=== PATIENT | female | born 1975 | race Caucasian/White ===

== ENCOUNTER → 2017-02-18 | Emergency (ER) | payer OTHER ==
[~2017-02-18] VITALS: Ht 157.5 cm; Wt 59.0 kg
[~2017-02-18] MED LIST: BUSPIRONE HCL10 MG PO; CEPHALEXIN500 MG PO; DESLORATADINE5 MG PO; DILAUDID2 MG PO; HUMIRA40 MG/0.8 SUB-Q; OMEPRAZOLE20 M1 PO; PLAQUENIL200 MG PO; WELLBUTRIN XL150 MG PO; ZOFRAN ODT4 MG PO
== END ==
LOC: ED 04:21
DX: K52.9 Noninfective gastroenteritis and colitis, unspecified (principal); I10 Essential (primary) hypertension; Z90.710 Acquired absence of both cervix and uterus; Z90.89 Acquired absence of other organs; Z88.5 Allergy status to narcotic agent; Z88.8 Allergy status to other drugs, medicaments and biological substances; Z79.899 Other long term (current) drug therapy
CPT/HCPCS: 80053; 81001; 83690; 85025; 96361; 96374; 96375; 99284; J1170; J2405; J7030

== ENCOUNTER 2023-07-27 07:41 | Day surgery (SDC) | payer OTHER ==
[~2023-07-27] VITALS: Ht 162.6 cm; Wt 65.0 kg
[~2023-07-27 07:41] MED LIST changes: +IBLOOD GLUCOSE TEST STRIP 1 EA TEST VI PRN; +LACTATED RINGER'S 1,000 ML IV SCH; +LIDOCAINE HCL 1% 5 ML SDV INJ ONE; +LIDOCAINE HCL 4% 50 ML BTL TOP SCH; +MIDAZOLAM HCL 5 MG/5 ML VIAL IV PRN; +fentaNYL citrate 100 MCG/2 ML VIAL IV PRN
[2023-07-27 07:55] VITALS: BP 135/78
[2023-07-27] MEDS ORDERED: MULTIPLE VITAM1 EAC2 PO (07:59)
[2023-07-27] MEDS ORDERED: PROBIOTIC1 EAC1 PO (08:00)
[2023-07-27] MEDS ORDERED: VITAMIN D310 MC4 PO (08:00)
[2023-07-27] MEDS ORDERED: LEFLUNOMIDE10 MG PO (08:00)
[2023-07-27] MEDS ORDERED: VALTREX500 MG PO (08:01)
[2023-07-27] MEDS ORDERED: fentaNYL citrate 100 MCG/2 ML VIAL ONE ×2 (08:57→09:32)
[2023-07-27] MEDS ORDERED: MIDAZOLAM HCL 5 MG/5 ML VIAL ONE (08:57)
--- NOTE | 2023-07-27 10:20 | NUR ---
07/27/23 1020 Suad Cox 1015- PT CHANGED HER ON POSITION TO SIT UP. 1019- REQUESTING TO HAVE ICE TO CHEW ON. DENIES PAIN OR NAUSEA.
[2023-07-27 10:55] VITALS: BP 121/76
--- NOTE | 2023-07-28 09:47 | OR ---
[facility] [address], [place] [address] Signed DATE OF OPERATION: 07/27/2023 SURGEON: Dax Hawkins MD PREOPERATIVE DIAGNOSES: 1. Iron deficiency anemia. 2. 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 3. Normal colonoscopy 2006. POSTOPERATIVE DIAGNOSES: 1. Anatomy typical of Yaquelin-en-Y gastric bypass. No evidence of ulceration, neoplasm, or abnormality. 2. Normal colon to cecum. PROCEDURES: 1. Esophagogastroduodenoscopy with biopsy. 2. Total colonoscopy to cecum. ANESTHESIA: Intravenous sedation; fentanyl 200 mcg and Versed 10 mg total. INDICATION: This 47-year-old white woman is a patient of ANGELIQUE Valero. She is noted to have iron deficiency anemia. She last underwent colonoscopy in 2006, which was normal. Additionally, she has undergone a gastric sleeve resection for obesity control which had complications requiring conversion to a Yaquelin-en-Y gastric bypass. She does have some colonic symptoms including diarrhea, but no actual rectal bleeding. She has had iron infusion x2 based on her iron deficiency anemia. She is admitted at this time to undergo upper endoscopy to better characterize the possibility of ulceration accounted for anemia as well as colonoscopy for similar purpose. The patient understands upon my discussion with her the anatomy of Yaquelin-en-Y gastric bypass is prone to iron deficiency anemia due to restriction of enteric contents away from the duodenum (it is most important and efficient iron absorption segment of the bowel). Nevertheless upper endoscopy and colonoscopy is undertaken to assess for abnormality that might account for iron deficiency anemia. FINDINGS: Upper endoscopy was normal with anatomy typical of Yaquelin-en-Y gastric bypass. She had an exceedingly small gastric pouch it is noted. She appeared to have a double-lumen Electronically Signed By: DAX HAWKINS MD 07/28/23 0947 PATIENT NAME: ALEXANDRU BEAR OPERATIVE REPORT DATE OF : 73 REPORT #: [id number] PHYSICIAN: DAX HAWKINS MD PCP: [facility] PAC REPORT IS CONFIDENTIAL AND NOT TO BE RELEASED WITHOUT AUTHORIZATION [facility] [address], [place] [address] Signed jejunal Yaquelin limb. There was no evidence of ulceration, neoplasm, H pylori, or other problem and certainly no evidence of a cause of anemia anatomically. On colonoscopy, the prep was good and complete colonoscopy was undertaken of the cecum. There was no evidence of polyps or other abnormality including cancer that would account for anemia. In aggregate, her anemia is likely related to diversion of enteric contents from the duodenum. DESCRIPTION OF PROCEDURE: The patient was brought to the endoscopy suite and placed in the lateral decubitus position, given intravenous sedation to the point of slurred speech and nystagmus after undergoing topical lidocaine hypopharyngeal anesthesia. A bite block was placed. An Olympus video upper endoscope was passed in the hypopharynx. The vocal cords appeared normal. The scope was advanced into the esophagus without problem and passed down to the gastric remnant which was exceedingly small. There was no sign of abnormality of the remnant. The scope was passed through the jejunal gastric anastomosis showing no sign of anastomotic stricture or ulceration. The Yaquelin limb was entirely normal and the scope passed for its extent as far as possible. Actual Yaquelin connection was never visualized, however. The scope was carefully withdrawn showing no sign of ulceration or other problem. Reinspection of the gastric pouch undertaken. There appeared to be a dual lumen configuration of the jejunal limb, likely related to technical issues in conversion from a sleeve resection to a Yaquelin-en-Y gastric bypass. Biopsies were taken of the stomach to assess for H pylori. Scope was withdrawn and biopsy was then taken of the esophagus, though it appeared normal. Further withdrawal of the scope showed no other abnormality. Plans were then made for colonoscopy. Additional sedation was given. Digital rectal examination was performed, which was normal. An Olympus video colonoscope was passed in the rectum and manipulated throughout the colon ultimately intubating the cecum itself. The ileocecal valve and appendiceal orifice were normal. The scope was withdrawn from that point and examination throughout showed no sign of abnormality. Retroflexed view was normal as well. The scope was removed and the patient was taken to the recovery room in good condition. CONCLUDING DIAGNOSIS: No anatomic lesion on colon or upper endoscopy to account for the anemia. She may have iron deficiency related to poor absorption in the excluded duodenal segment; alternatively she certainly may have peptic disease in the gastric remnant. Electronically Signed By: DAX HAWKINS MD 07/28/23 0947 PATIENT NAME: ALEXANDRU BEAR OPERATIVE REPORT DATE OF : 73 REPORT #: [id number] PHYSICIAN: DAX HAWKINS MD PCP: [facility] PAC REPORT IS CONFIDENTIAL AND NOT TO BE RELEASED WITHOUT AUTHORIZATION [address] [address] Signed PLAN: We will initiate iron oral supplementation with bariatric advantage chewable iron tablet 60 mg one tablet p.o. daily and we will initiate PPI medication Prilosec 20 mg daily on the unproven possibility of ulcer disease of the excluded gastroduodenal segment. She will return to the ongoing care of [facility] and I will see her back in three months with a CBC prior to visit. MD RAMAN Dawson/DANYELLL /[id number] cc: ANGELIQUE Valero Copies: ~ Electronically Signed By: DAX HAWKINS MD 07/28/23 0947 PATIENT NAME: ALEXANDRU BEAR OPERATIVE REPORT DATE OF : 73 REPORT #: [id number] PHYSICIAN: DAX HAWKINS MD PCP: [facility] PAC REPORT IS CONFIDENTIAL AND NOT TO BE RELEASED WITHOUT AUTHORIZATION
--- NOTE | 2023-08-01 11:54 | PATH ---
[facility] [address], [place] [address] Signed SPECIMEN(S): A GASTRIC POUNCH STOMACH BIOPSY SPECIMEN(S): B DISTAL ESOPHAGEAL BIOPSY SPECIMEN SOURCE: A. GASTRIC POUNCH STOMACH BIOPSY B. DISTAL ESOPHAGEAL BIOPSY CLINICAL HISTORY: Iron deficiency anemia, history of GERD, diarrhea FINAL PATHOLOGIC DIAGNOSIS: A. Gastric pouch, biopsies: - Mild chronic gastritis, negative for active inflammation. - H. pylori bacteria are detected by HE stain. B. Distal esophagus, biopsies: - Mild chronic esophagitis with increased eosinophils (up to 5 per high-power field), negative for De La Torre's metaplasia. AMB MICROSCOPIC EXAMINATION: Histologic sections of all submitted blocks are examined by light microscopy. These findings, together with the gross examination, support the pathologic diagnosis. GROSS DESCRIPTION: A. The specimen, labeled and designated "Schmidt, gastric pouch stomach biopsy," is received in formalin and consists of one nicole soft tissue fragment, 0.4 cm. Entirely submitted in (A1). B. The specimen, labeled and designated "Schmidt, distal esophageal biopsy," is received in formalin and consists of four nicole soft tissue fragments, ranging from 0.1-0.4 cm. Entirely submitted in (B1). VB (under the direct supervision of a pathologist) The Gross Description was prepared using a voice recognition system. The report was reviewed for accuracy; however, sound-alike word errors, addition and/or deletions may occur. If there is any question about this report, please contact Client Services. ADDITIONAL NOTES: Immunohistochemical and/or in situ hybridization studies if performed in this case included appropriate positive controls that reacted as expected. This test was developed and its performance PATIENT NAME: ZAYRA SCHMIDT PATHOLOGY DATE OF : 73 REPORT #: [id number] PHYSICIAN: DINA MONTERROSO PCP: [facility] PAC REPORT IS CONFIDENTIAL AND NOT TO BE RELEASED WITHOUT AUTHORIZATION [facility] [address], [place] [address] Signed characteristics determined by [facility]. It has not been cleared or approved by the U.S. Food and Drug Administration. The FDA has determined that such clearance or approval is not necessary. This test is used for clinical purposes. It should not be regarded as investigational or for research. [facility] is certified under the Clinical Laboratory Improvement Amendments of 1988 (CLIA) as qualified to perform high complexity clinical laboratory testing. PERFORMING LABORATORY: Technical component was performed by [facility], [address] [place] [address] (CLIA# [id number]). Professional interpretation was performed by [id number] - [address] [id number] [id number] Diagnostician: Zayra Jara MD Pathologist Electronically Signed 08/01/2023 Copies: ~ PATIENT NAME: ZAYRA SCHMIDT PATHOLOGY DATE OF : 73 REPORT #: [id number] PHYSICIAN: DINA MONTERROSO PCP: [facility] PAC REPORT IS CONFIDENTIAL AND NOT TO BE RELEASED WITHOUT AUTHORIZATION
== END 2023-07-27 10:55 | disposition home or self-care (01) ==
LOC: OPS 07:41 → DS 07:41 → OPS 08:30 → DS 10:30 → OPS 10:55
PROVIDERS: ATTEND Surgery
PROC: 0DB68ZX Excision of Stomach, Via Natural or Artificial Opening Endoscopic, Diagnostic (ICD-10-PCS; principal; 2023-07-27 09:15)
PROC: 0DJD8ZZ Inspection of Lower Intestinal Tract, Via Natural or Artificial Opening Endoscopic (ICD-10-PCS; 2023-07-27 09:15)
DX: K29.50 Unspecified chronic gastritis without bleeding (principal); K20.90 Esophagitis, unspecified without bleeding; D50.9 Iron deficiency anemia, unspecified; Z98.84 Bariatric surgery status; Z87.19 Personal history of other diseases of the digestive system
CPT/HCPCS: 99153; G0500; J2250; J3010; J7121